=== PATIENT | male | born 1995 | race Caucasian/White ===

== ENCOUNTER 2025-05-05 18:27 | Emergency (ER) | payer MEDICAID ==
[~2025-05-05] VITALS: Ht 172.7 cm; Wt 68.0 kg
[2025-05-05] MEDS: FLUORESCEIN SODIUM 1 MG STRIP OU ONE (20:00)
[2025-05-05] MEDS ORDERED: ACET-66 PO (20:02)
[2025-05-05] MEDS ORDERED: SULF15DR26 OS (20:02)
[2025-05-05] MEDS: ERYTHROMYCIN 0.5% 3.5 GM TUBE OPHTHALMIC OINTMENT OS ONE (20:10)
[2025-05-05] MEDS: ACETAMINOPHEN 500 MG TABLET PO ONE (20:10)
[2025-05-05 20:30] VITALS: BP 119/67; PULSE 78; RESP 18; TEMP 97.3; O2SAT 99
== END 2025-05-05 20:52 | disposition home or self-care (01) ==
LOC: EMS 18:31
DX: H10.32 Unspecified acute conjunctivitis, left eye (principal)
CPT/HCPCS: 99283